=== PATIENT | male | born 1990 | race Two or more races ===

== ENCOUNTER 2018-12-31 09:20 | Emergency (ER) | payer SELFPAY ==
[~2018-12-31] VITALS: Ht 170.2 cm; Wt 72.6 kg
[2018-12-31] MEDS ORDERED: IV NORMAL SALINE 1000ML BAG 1,000 ML IV ONE ×2 (09:45→10:15)
[2018-12-31] MEDS ORDERED: diphenhydrAMINE 50 MG/ML VIAL IVP ONE (09:45)
[2018-12-31] MEDS ORDERED: METOCLOPRAMIDE HCL 10 MG/2 ML VIAL. IV ONE (09:45)
[2018-12-31] MEDS ORDERED: DEXAMETHASONE SOD PHOS 20 MG/5 ML VIAL. IV ONE (09:45)
[2018-12-31] MEDS ORDERED: KETOROLAC 15 MG/ML VIAL. IV ONE (09:45)
[2018-12-31] MEDS ORDERED: ACETAMINOPHEN 500 MG TABLET PO ONE (10:15)
[2018-12-31] MEDS ORDERED: FAMOTIDINE 20 MG/2 ML VIAL IVP ONE (10:15)
[2018-12-31 10:20] LABS: BASO # 0.1 x10^3/uL (0.0-0.2); BASO % 1 % (0-3); EOS % 0 % (0-3); HEMATOCRIT 43.7 % (39.0-53.0); HEMOGLOBIN 15.2 g/dL (13.0-17.5); LYMPH # 0.3 x10^3/uL (1.0-4.8); LYMPH % 3 % (24-48); MEAN CORPUSCULAR HEMOGLOBIN 32 pg (25-35); MEAN CORPUSCULAR HGB CONC 35 g/dL (31-37); MEAN CORPUSCULAR VOLUME 91 fL (79-100); MONO # 0.5 x10^3/uL (0.0-1.1); MONO % 6 % (0-9); NEUT # 7.4 x10^3uL (1.8-7.7); NEUT % 90 % (31-73); PLATELET COUNT 215 x10^3/uL (140-400); RED BLOOD COUNT 4.82 x10^6/uL (4.30-5.70); RED CELL DISTRIBUTION WIDTH 12.9 % (11.5-14.5); WHITE BLOOD COUNT 8.3 x10^3/uL (4.0-11.0)
[2018-12-31 10:29] LABS: PROTHROMBIN TIME PATIENT 12.7 SEC (11.7-14.0)
[2018-12-31] MEDS ORDERED: PIPERACILLIN/TAZOBACTAM 4.5 GM in IV NORMAL SALINE 100ML 100 ML IV ONE (10:30)
[2018-12-31 10:38] LABS: CALCIUM 9.3 mg/dL (8.5-10.1); CREATININE 0.9 mg/dL (0.7-1.3); GFR 99.1; POTASSIUM 3.7 mmol/L (3.5-5.1)
[2018-12-31 10:44] LABS: ALBUMIN 4.1 g/dL (3.4-5.0); TOTAL BILIRUBIN 0.8 mg/dL (0.2-1.0); TOTAL PROTEIN 8.3 g/dL (6.4-8.2)
[2018-12-31] MEDS ORDERED: IOHEXOL 300 MG/ML 100ML VIAL. IV ONE (11:00)
--- NOTE | 2018-12-31 11:21 | PHYS DOC ---
Past Medical History Past Medical History: No Pertinent History Past Surgical History: No Surgical History Alcohol Use: None Drug Use: Marijuana, Methamphetamine Adult General Chief Complaint Chief Complaint: HEADACHE HPI HPI Patient is a 28 year old male who presents with headache, fever, nausea, and vomiting. The patient states he felt "weird" throughout yesterday, and then fell and hit his head on a door at noon. His current symptoms began at approximately 7pm later that day. He reports the headache is diffuse, constant, and a 9/10 in severity. He states it is worse than any other headache he's had before. He denies any neck stiffness. He reports several episodes of "coffee-colored" vomit yesterday. In addition, he reports RUQ abdominal and lower, right back pain that has gotten worse this morning. He states the pain is a 10/10 in severity, sharp, and constant. Review of systems is positive for photophobia, and sensitivity to sound, and left knee pain. He admits to IV drug abuse with methamphetamine and states the last use was 4 days ago. Review of Systems Review of Systems Constitutional: Reports subjective fever and chills Eyes: Denies redness or eye pain HENT: Denies nasal congestion or sore throat Respiratory: Denies cough or shortness of breath Cardiovascular: Denies chest pain or palpitations GI: Reports RUQ abdominal pain, nausea, and vomiting : Denies dysuria or hematuria Musculoskeletal: Reports right sided, low back pain. Also c/o of right knee pain. Integument: Denies rash or skin lesions Neurologic: Reports headache. Denies focal weakness or sensory changes Complete systems were reviewed and found to be within normal limits, except as documented in this note. Current Medications Current Medications Current Medications Medications (Trade) Dose Ordered Sig/Jayro Start Time Stop Time Status Last Admin Dose Admin Acetaminophen (Tylenol) 500 mg 1X ONCE 12/31/18 10:15 12/31/18 10:21 DC 12/31/18 10:52 500 MG Dexamethasone Sodium Phosphate (Decadron) 10 mg 1X ONCE 12/31/18 09:45 12/31/18 10:21 DC 12/31/18 10:46 10 MG Diphenhydramine HCl (Benadryl) 50 mg 1X ONCE 12/31/18 09:45 12/31/18 10:21 DC 12/31/18 10:44 50 MG Famotidine (Pepcid Vial) 20 mg 1X ONCE 12/31/18 10:15 12/31/18 10:21 DC 12/31/18 10:45 20 MG Iohexol (Omnipaque 300 Mg/ml) 75 ml 1X ONCE 12/31/18 11:00 12/31/18 11:01 DC 12/31/18 11:21 75 ML Ketorolac Tromethamine (Toradol 15mg Vial) 15 mg 1X ONCE 12/31/18 09:45 12/31/18 10:21 DC 12/31/18 10:50 15 MG Metoclopramide HCl (Reglan Vial) 10 mg 1X ONCE 12/31/18 09:45 12/31/18 10:21 DC 12/31/18 10:48 10 MG Piperacillin Sod/ Tazobactam Sod 4.5 gm/Sodium Chloride 100 ml @ 200 mls/hr 1X ONCE 12/31/18 10:30 12/31/18 10:59 DC 12/31/18 11:32 200 MLS/HR Sodium Chloride 1,000 ml @ 1,000 mls/hr 1X ONCE 12/31/18 10:15 12/31/18 11:14 DC 12/31/18 10:42 1,000 MLS/HR Allergies Allergies Allergies Coded Allergies Type Severity Reaction Last Updated Verified No Known Drug Allergies 12/31/18 No Physical Exam Physical Exam Constitutional: Sleepy appearing 28 yo male in moderate distress. HENT: Normocephalic, atraumatic, oropharynx moist Eyes: PERRL, EOMI, conjunctiva normal, no discharge. Dilated pupils. Neck: Normal range of motion, no tenderness, supple Cardiovascular: Tachycardic, regular rhythm. No murmurs. Lungs & Thorax: Bilateral breath sounds clear to auscultation, no wheezing Abdomen: Soft, RUQ tenderness to palpation. Skin: Warm, dry, no erythema, no rash Back: Right-sided low back pain, no CVA tenderness Extremities: No tenderness, ROM intact, no edema Neurologic: Alert and oriented X 3, normal motor function, normal sensory function, no focal deficits noted Psychologic: Affect normal, judgement normal, mood normal Current Patient Data Vital Signs Vital Signs Date Time Temp Pulse Resp B/P (MAP) Pulse Ox O2 Delivery O2 Flow Rate FiO2 12/31/18 09:45 100.9 123 18 151/88 (109) 100 Room Air 100.9 Lab Values Laboratory Tests Test 12/31/18 09:55 White Blood Count 8.3 x10^3/uL (4.0-11.0) Red Blood Count 4.82 x10^6/uL (4.30-5.70) Hemoglobin 15.2 g/dL (13.0-17.5) Hematocrit 43.7 % (39.0-53.0) Mean Corpuscular Volume 91 fL (79-100) Mean Corpuscular Hemoglobin 32 pg (25-35) Mean Corpuscular Hemoglobin Concent 35 g/dL (31-37) Red Cell Distribution Width 12.9 % (11.5-14.5) Platelet Count 215 x10^3/uL (140-400) Neutrophils (%) (Auto) 90 % (31-73) H Lymphocytes (%) (Auto) 3 % (24-48) L Monocytes (%) (Auto) 6 % (0-9) Eosinophils (%) (Auto) 0 % (0-3) Basophils (%) (Auto) 1 % (0-3) Neutrophils # (Auto) 7.4 x10^3uL (1.8-7.7) Lymphocytes # (Auto) 0.3 x10^3/uL (1.0-4.8) L Monocytes # (Auto) 0.5 x10^3/uL (0.0-1.1) Eosinophils # (Auto) 0.0 x10^3/uL (0.0-0.7) Basophils # (Auto) 0.1 x10^3/uL (0.0-0.2) Segmented Neutrophils % 77 % (35-66) H Band Neutrophils % 15 % (0-9) H Lymphocytes % 2 % (24-48) L Monocytes % 5 % (0-10) Basophils % 1 % (0-3) Platelet Estimate Adequate (ADEQUATE) Erythrocyte Sedimentation Rate 17 (0-15) H Prothrombin Time 12.7 SEC (11.7-14.0) Prothrombin Time INR 1.0 (0.8-1.1) PTT 36 SEC (24-38) Sodium Level 130 mmol/L (136-145) L Potassium Level 3.7 mmol/L (3.5-5.1) Chloride Level 92 mmol/L (98-107) L Carbon Dioxide Level 26 mmol/L (21-32) Anion Gap 12 (6-14) Blood Urea Nitrogen 10 mg/dL (8-26) Creatinine 0.9 mg/dL (0.7-1.3) Estimated GFR (Cockcroft-Gault) 99.1 BUN/Creatinine Ratio 11 (6-20) Glucose Level 107 mg/dL (70-99) H Lactic Acid Level 1.6 mmol/L (0.4-2.0) Calcium Level 9.3 mg/dL (8.5-10.1) Magnesium Level 1.9 mg/dL (1.8-2.4) Total Bilirubin 0.8 mg/dL (0.2-1.0) Aspartate Amino Transferase (AST) 32 U/L (15-37) Alanine Aminotransferase (ALT) 51 U/L (16-63) Alkaline Phosphatase 82 U/L (46-116) C-Reactive Protein, Quantitative 65.5 mg/L (0-3.3) H Total Protein 8.3 g/dL (6.4-8.2) H Albumin 4.1 g/dL (3.4-5.0) Albumin/Globulin Ratio 1.0 (1.0-1.7) Lipase 108 U/L (73-393) Laboratory Tests 12/31/18 09:55 Laboratory Tests 12/31/18 09:55 EKG EKG [] Radiology/Procedures Radiology/Procedures [] Course & Med Decision Making Course & Med Decision Making Patient is a 28 yo male who presents with headache, fever, nausea, vomiting. Meningeal signs not present. Patient also c/o of severe RUQ and Right sided low back pain. History of IVDA with Methamphetamines. Patient tachycardic and febrile at 100.9. Blood cultures drawn. CT of head and neck obtained which showed...CTA with reconstruction of abdomen obtained to rule out spinal abscess. IV fluids administered according to Sepsis guidelines. 1 dose of Zosyn administered for empiric coverage. Dragon Disclaimer Dragon Disclaimer This electronic medical record was generated, in whole or in part, using a voice recognition dictation system. Departure Departure Impression: Primary Impression: Fever Additional Impressions: Nausea & vomiting Headache IV drug abuse Abdominal pain Back pain Disposition: HOME, SELF-CARE Condition: IMPROVED Referrals: NO PCP (PCP) Patient Instructions: Abdominal Pain (Nonspecific), Alcohol and Drug Addiction, Finding Treatment, Back Pain, Adult, [id number], Fever, Adult, [id number], Nausea and Vomiting, [id number]-[id number] Scripts Butalb/Acetaminophen/Caffeine ([id number] 50-325-40) 1 Each Tablet 1 EACH PO Q6HRS PRN for HEADACHE, #14 TAB Prov: SINGH GALVAN DO 12/31/18 Famotidine (PEPCID) 20 Mg Tablet 20 MG PO BID, #20 TAB Prov: SINGH GALVAN DO 12/31/18 Ondansetron (ONDANSETRON ODT) 4 Mg Tab.rapdis 1 TAB PO PRN Q6-8HRS PRN for NAUSEA, #16 TAB Prov: SINGH GALVAN DO 12/31/18 Fluid Challenge BMI > 30: No Vital Signs Vital Signs: Vital Signs Date Time Temp Pulse Resp B/P (MAP) Pulse Ox O2 Delivery O2 Flow Rate FiO2 12/31/18 09:45 100.9 123 18 151/88 (109) 100 Room Air 100.9 Temperature Source: Oral Respirations Respiratory Effort: Normal Respiratory Pattern: Normal Cardiovascular Pulse Rhythm: Regular Heart: Nml S1, S2, no murmurs, S1 and S2 normal, No murmurs noted, No gallops noted Lung Sounds Breath Sounds: Clear Peripheral Pulse Pulse Assessment Method: Monitor Integumentary Skin: Warm, Dry Skin Moisture: Dry Skin Turgor: Normal Skin Color: warm Fingernail Color: WNL Problem Qualifiers Primary Impression: Fever Fever type: unspecified Qualified Codes: R50.9 - Fever, unspecified Additional Impressions: Nausea & vomiting Vomiting type: unspecified Vomiting Intractability: non-intractable Qualified Codes: R11.2 - Nausea with vomiting, unspecified Headache Headache type: unspecified Headache chronicity pattern: acute headache Intractability: not intractable Qualified Codes: R51 - Headache Abdominal pain Abdominal location: right upper quadrant Qualified Codes: R10.11 - Right upper quadrant pain Back pain Back pain location: low back pain Chronicity: acute Back pain laterality: right Sciatica presence: without sciatica Qualified Codes: M54.5 - Low back pain SINGH GALVAN DO Dec 31, 2018 11:21
--- NOTE | 2018-12-31 11:35 | RAD ---
PQRS Compliance Statement: One or more of the following individualized dose reduction techniques were utilized for this examination: 1. Automated exposure control 2. Adjustment of the mA and/or kV according to patient size 3. Use of iterative reconstruction technique CT head and cervical spine without contrast 12/31/2018 10:08 AM INDICATION: Pain status post head injury COMPARISON: None available TECHNIQUE: Multiple axial CT images of the head were obtained from skull base through the vertex without intravenous contrast. Multiple axial CT images of the cervical spine were obtained without intravenous contrast. Coronal and sagittal reformats are provided. FINDINGS: Head: Ventricles, sulci and basal cisterns are within normal limits. There is no hydrocephalus. Gonzalez-white matter differentiation is normal. There is no acute intracranial hemorrhage. There is no mass, mass effect or midline shift. Posterior fossa is normal in appearance. Visualized portions of the orbits are normal. Paranasal sinuses are well aerated. Mastoid air cells are well aerated. Scalp and calvaria are normal. Cervical spine: Alignment of the cervical spine is normal. Skull base is intact. Craniocervical junction is normal in appearance. Atlantoaxial articulation is normal. Vertebral body heights are maintained without evidence for acute fracture. Facet joints are within normal limits. No significant osseous neural foraminal stenosis. No significant osseous spinal canal stenosis. Transverse foramen are intact. There is no prevertebral soft tissue swelling. Thyroid gland is normal in appearance. Visualized portions of the lung apices are normal without evidence for suspicious pulmonary nodule or infiltrate. IMPRESSION: 1. No acute intracranial hemorrhage. 2. No acute fracture or malalignment of the cervical spine. Electronically signed by: Wendie Ann MD (12/31/2018 11:31 AM) [id number]
[2018-12-31 11:49] LABS: % BANDS 15 % (0-9); % BASOS 1 % (0-3); % LYMPHS 2 % (24-48); % MONOS 5 % (0-10); % SEGS 77 % (35-66); PLT ESTIMATE ADEQUATE (ADEQUATE)
--- NOTE | 2018-12-31 11:56 | RAD ---
PQRS Compliance Statement: One or more of the following individualized dose reduction techniques were utilized for this examination: 1. Automated exposure control 2. Adjustment of the mA and/or kV according to patient size 3. Use of iterative reconstruction technique CT chest, abdomen and pelvis with contrast 12/31/2018 11:[address] thoracic and lumbar spine without contrast INDICATION: Right lower chest and upper abdominal pain COMPARISON: None available TECHNIQUE: Multiple axial CT images of the chest, abdomen and pelvis were obtained after the intravenous administration of nonionic contrast. Coronal and sagittal reformats are provided. 2-D reconstructions of the thoracic and lumbar spine are provided. FINDINGS: Thyroid gland is normal in appearance. No pathologically enlarged thoracic lymph nodes. Residual thymic soft tissue is noted. Heart size within normal limits. Thoracic aorta is normal in course and caliber. Thoracic esophagus is normal in appearance. No pericardial or pleural effusions. No pulmonary infiltrates. No pulmonary vascular congestion or pneumothorax. Sternum is intact. Scapula and clavicles are intact. No acutely displaced rib fracture is identified. Liver, spleen, bilateral adrenal glands, pancreas, gallbladder and kidneys are intact. There is no hydronephrosis or suspicious mass. Abdominal aorta is normal in course and caliber. Circumaortic left renal vein is identified. No pathologically enlarged lymph nodes are identified in abdomen and pelvis. There is no free fluid or free intraperitoneal air. Small and large bowel are normal in caliber. There is no evidence for bowel obstruction. There are no pericolonic inflammatory changes. A normal, nondilated appendix is visualized without adjacent inflammatory changes. Urinary bladder is within normal limits given degree of distention. No acute fracture or dislocation involving the pelvis. Sacrum and coccyx are intact. Thoracic and lumbar spine: Alignment of the thoracic spine is normal. Vertebral body heights are maintained. No acute fracture is identified. Disc heights are maintained. Mild anterior marginal osteophytosis is identified. There is no osseous neuroforaminal or spinal canal stenosis. Facet joints are intact. Spinous processes are intact. Alignment of the lumbar spine is normal. Vertebral body heights of the lumbar spine are maintained. Disc heights are maintained. Mild disc bulge is identified at L4-L5 and L5-S1 without significant osseous neuroforaminal or spinal canal stenosis. Spinous processes and transverse processes appear intact. No significant facet arthropathy is identified. IMPRESSION: 1. No acute traumatic abnormality is identified involving the chest, abdomen and pelvis. 2. No acute fracture or malalignment of the thoracic and lumbar spine. Electronically signed by: Wendie Ann MD (12/31/2018 11:54 AM) [id number]
[2018-12-31 12:00] VITALS: BP 137/77
[2018-12-31] MEDS ORDERED: FAMO-63 PO (12:22)
[2018-12-31] MEDS ORDERED: BUTA1TAB23 PO (12:22)
[2018-12-31] MEDS ORDERED: ONDA4TAB12 PO (12:22)
[2018-12-31 12:44] LABS: BILIRUBIN,URINE NEGATIVE (NEG); CLARITY,URINE CLEAR; COLOR,URINE YELLOW; NITRITE,URINE NEGATIVE (NEG); PROTEIN,URINE NEGATIVE (NEG-TRACE)
[2018-12-31 12:53] LABS: BACTERIA,URINE 0 /HPF (0-FEW); BARBITURATES NEG (NEG); BENZODIAZEPINES NEG (NEG); CANNABINOIDS POS (NEG); COCAINE NEG (NEG); METHADONE NEG (NEG); OPIATES POS (NEG); PHENCYCLIDINE NEG (NEG); WBC,URINE OCC /HPF (0-4)
[2018-12-31 12:57] LABS: AMPHETAMINE/METHAMPHETAMINE POS (NEG)
== END 2018-12-31 13:15 | disposition home or self-care (01) ==
LOC: ER 09:20
DX: R50.9 Fever, unspecified (principal); R11.2 Nausea with vomiting, unspecified; R10.11 Right upper quadrant pain; R10.31 Right lower quadrant pain; M25.561 Pain in right knee; M25.562 Pain in left knee; R51 Headache; M54.5 Low back pain; R00.0 Tachycardia, unspecified; F15.20 Other stimulant dependence, uncomplicated; W18.39XA Other fall on same level, initial encounter; W22.8XXA Striking against or struck by other objects, initial encounter; Y93.89 Activity, other specified; Y92.89 Other specified places as the place of occurrence of the external cause; Y99.8 Other external cause status
CPT/HCPCS: 36415; 70450; 71260; 72125; 74177; 80053; 80307; 81001; 83605; 83690; 83735; 85007; 85025; 85610; 85651; 85730; 86140; 87040; 96360; 96361; 96365; 96375; 99285; J1100; J1200; J1885; J2543; J2765; J3490; J7030; Q9967